=== PATIENT | female | born 1935 | race Hispanic/Latino ===

== ENCOUNTER 2017-02-02 19:36 | Emergency (ER) | payer MEDICARE, OTHER ==
--- NOTE | 2017-02-02 22:26 | RAD ---
RIGHT ANKLE THREE VIEWS: 02/02/17 HISTORY: Ankle pain and swelling. The bones appear demineralized. Vascular calcifications are noted. Calcaneal spurs are present. Mini mal arthritis changes of the ankle joint are noted. There is also arthritic changes of the tarsal willi ne region. I do not see any signs of any fracture. There appears to be a small osteochondral lesion of the medial side of the talar dome. IMPRESSION: No evidence of acute injury. POS: [facility]
== END 2017-02-02 21:26 | disposition home or self-care (01) ==
LOC: ERS 19:36
DX: M25.571 Pain in right ankle and joints of right foot (principal); E11.9 Type 2 diabetes mellitus without complications; E78.5 Hyperlipidemia, unspecified

== ENCOUNTER 2017-06-06 07:54 | Emergency (ER) | payer MEDICARE, OTHER ==
--- NOTE | 2017-06-06 08:41 | CT ---
BRAIN CT WITHOUT IV CONTRAST: History: 82-year-old female with history of slip and fall with back pain and head pain. Comparison: 09-19-15 FINDINGS: There is some age related atrophy and chronic white matter ischemic change. No focal mass or midline shift. No intra or extraaxial hemorrhage. IMPRESSION: Stable atrophy and chronic white matter ischemic change. No mass or bleed. Unchanged from prior exam, 09-19-15. POS: [facility]
--- NOTE | 2017-06-06 08:57 | CT ---
CERVICAL SPINE CT WITHOUT IV CONTRAST: HISTORY: An 82-year-old female with a history of slip and fall with back pain and head pain and associated tra colby. FINDINGS: There are some minimal disk desiccation changes and degenerative changes of the cervical spine. Ther e is a somewhat mosaic pattern to the visualized upper lungs. No evidence for acute fracture r facet dislocation. IMPRESSION: Cervical spine spondylosis without evidence for a fracture or facet dislocation. A nonspecific mosai c appearance to the visualized lungs. POS: [facility]
--- NOTE | 2017-06-06 09:31 | RAD ---
AP PELVIS: History: Trauma. Patient slipped and fell. Back pain. Right hip pain. FINDINGS/IMPRESSION: Degenerative changes are present in the hip joints and the lower lumbar spine. No acute fracture or d islocation is identified. There is a radiopaque foreign body in the pelvis which may represent a need le. Clinical correlation is recommended. POS: [facility]
--- NOTE | 2017-06-06 09:33 | RAD ---
FRONTAL VIEW CHEST TWO VIEWS RIGHT RIBS: Indication: Post-traumatic pain. FINDINGS: There is enlargement of the cardiac silhouette and pulmonary vascular congestion with interstitial pr ominence of each lung. No obvious effusion or discrete pneumothorax. No free air beneath the hemidiap hragms. There are scattered osseous degenerative changes. There is no displaced right rib fracture vi sualized. IMPRESSION: 1. Findings which indicate CHF. Correlate clinically. 2. No displaced rib fracture is seen. POS: [facility]
--- NOTE | 2017-06-06 09:57 | RAD ---
RIGHT HIP 2 VIEWS: INDICATION: Fall with injury. FINDINGS: There is moderate osteoarthritis. There is a radiopaque dense overlying the pelvis, not further loca lized. IMPRESSION: 1. No acute osseous of the right hip. 2. Linear radiopaque density overlying the pelvis not further localized. Correlate clinically. POS: [facility]
== END 2017-06-06 10:12 | disposition home or self-care (01) ==
LOC: ERS 07:54
DX: M25.551 Pain in right hip (principal); E11.9 Type 2 diabetes mellitus without complications; E78.5 Hyperlipidemia, unspecified; Z79.4 Long term (current) use of insulin; W19.XXXA Unspecified fall, initial encounter
CPT/HCPCS: 70450; 72125; 72170

== ENCOUNTER 2017-06-09 18:32 | Observation (INO) | payer MEDICARE, OTHER ==
[~2017-06-09 18:32] MED LIST: ISOVUE-370 76%-LOCM 1 ML ONE
[2017-06-09 19:36] LABS: #Eosinphils 0.4 thou/uL (0.0-0.7); #Monocytes 0.7 thou/uL (0.11-0.59); #Neutrophils 6.6 thou/uL (1.40-6.50); %Basophils 0.4 % (0.0-1.0); %Eosinophils 4.2 % (0.0-10.0); %Lymphocytes 20.8 % (21.0-51.0); %Monocytes 6.6 % (0.0-10.0); %Neutrophils 67.9 % (42.0-75.0); Hemoglobin 11.8 g/dL (12.0-16.0); Mean Corpuscular HGB CONC 34.1 g/dL (32.0-36.0); Mean Corpuscular Hemoglobin 32.7 pg (27.0-31.0); Mean Corpuscular Volume 95.9 fl (81.0-99.0); Mean Platelet Volume 9.4 fL (7.4-10.4); Platelet Count 179 thou/uL (130-400); RBC Distribution Width 12.6 % (11.5-14.5); Red Blood Cell (RBC) Count 3.59 mill/uL (4.20-5.40); White Blood Cell (WBC) Count 9.8 thou/uL (4.8-10.8)
[2017-06-09 19:43] LABS: PTT 29.3 SEC (22.9-36.1); Prothrombin Time 13.8 SEC (12.0-14.7)
[2017-06-09 19:45] LABS: D-Dimer Test 2.19 *mcg/mL (0.27-0.43)
[2017-06-09 19:51] LABS: ALT (SGPT) 14 U/L (8-55); AST (SGOT) 9 U/L (5-34); Alkaline Phosphatase 57 U/L (40-150); Anion Gap 10 mmol/L (10-20); BUN (Urea Nitrogen) 24 mg/dL (9.8-20.1); Bilirubin, Total 0.9 mg/dL (0.2-1.2); Calc. Creatinine Clearance 0 mL/min (70-130); Calcium 9.7 mg/dL (7.8-10.44); Carbon Dioxide 27 mmol/L (23-31); Chloride 106 mmol/L (98-107); Estimated GFR-MDRD 62; Globulin 3.5 g/dL (2.4-3.5); Glucose 162 mg/dL (83-110); Lipase 35 U/L (8-78); Magnesium 1.6 mg/dL (1.6-2.6); Potassium 4.5 mmol/L (3.5-5.1); Protein, Total 7.5 g/dL (6.0-8.3); Sodium 138 mmol/L (136-145)
[2017-06-09] MEDS ORDERED: Ketorolac Tromethamine 30 MG/ML VIAL ONE (19:55)
[2017-06-09] MEDS ORDERED: Fentanyl 100 MCG/2 ML VIAL ONE ×2 (19:55→23:50)
[2017-06-09 19:56] LABS: CKMB 1.1 ng/mL (0-6.6); Troponin I Less than 0.010 ng/mL (< 0.028)
--- NOTE | 2017-06-09 20:08 | RAD ---
PORTABLE CHEST: 06/09/17 HISTORY: Chest pain. COMPARISON: 08/03/15. Heart is mildly enlarged. There is mild vascular congestion. Some interstitial prominence may represe nt mild edema. No confluent infiltrate. No significant effusion. IMPRESSION: Heart size is mildly prominent and there is evidence of mild vascular engorgement. POS: [facility]
--- NOTE | 2017-06-09 22:03 | CT ---
CT PULMONARY ANGIO OF CHEST WITH CONTRAST: 06/09/17 Multiple axial tomograms obtained through the chest with IV enhancement. Multiplanar reconstruction a nd 3D postprocessing performed. HISTORY: Shortness of breath. Elevated D-dimer. Chest pain. Pulmonary arteries are adequately opacified. No evidence of pulmonary embolus identified. No evidence of thoracic aortic dissection. Mediastinum unremarkable. There is cardiomegaly with vascular congestion. The lungs show hazy ground glass opacity throughout b oth lung penn most likely representing mild edema. Streaky atelectatic changes in both lung bases. No evidence of effusion. IMPRESSION: 1. No evidence of pulmonary embolus. 2. Cardiomegaly with vascular congestion. Hazy ground glass alveolar opacity throughout both gracia gs suggests edema. POS: [facility]
[2017-06-09] MEDS ORDERED: Furosemide 40 MG/4 ML VIAL ONE (23:47)
[2017-06-10] MEDS ORDERED: Dextrose 5% in Water 1,000 ML IV PRN ×2 (00:08→02:06)
[2017-06-10] MEDS ORDERED: Ondansetron ODT 4 MG TAB PO PRN (00:08)
[2017-06-10] MEDS ORDERED: Milk Of Magnesia 30 ML UDCUP PO PRN (00:08)
[2017-06-10] MEDS ORDERED: Dextrose 50% Abboject 50 ML SYRINGE SLOW IVP PRN ×2 (00:08→02:06)
[2017-06-10] MEDS ORDERED: Ondansetron PF 4 MG/2 ML Vial IVP PRN (00:08)
[2017-06-10] MEDS ORDERED: Acetaminophen 325 MG TAB PO PRN (00:08)
[2017-06-10] MEDS ORDERED: HumaLOG 300 UNITS/3 ML VIAL SC PRN (00:08)
[2017-06-10] MEDS ORDERED: Albuterol Sulfate 2.5 mg/3 ml Neb NEB PRN (00:11)
[2017-06-10 00:15] LABS: Troponin I Less than 0.010 ng/mL (< 0.028)
[2017-06-10 01:59] VITALS: BMI 31.8
[2017-06-10] MEDS ORDERED: Morphine 5 MG/ML SYRINGE SLOW IVP PRN (02:07)
[2017-06-10] MEDS ORDERED: Furosemide 20 MG/2 ML VIAL SLOW IVP SCH (02:15)
[2017-06-10 02:57] LABS: #Basophils 0.1 thou/uL (0.0-0.2); #Eosinphils 0.4 thou/uL (0.0-0.7); #Lymphocytes 2.3 thou/uL (1.20-3.40); #Monocytes 0.9 thou/uL (0.11-0.59); #Neutrophils 5.9 thou/uL (1.40-6.50); %Basophils 0.6 % (0.0-1.0); %Eosinophils 4.2 % (0.0-10.0); %Lymphocytes 24.1 % (21.0-51.0); %Monocytes 9.5 % (0.0-10.0); %Neutrophils 61.6 % (42.0-75.0); Hemoglobin 11.5 g/dL (12.0-16.0); Mean Corpuscular Hemoglobin 32.5 pg (27.0-31.0); Mean Corpuscular Volume 95.8 fl (81.0-99.0); Mean Platelet Volume 9.3 fL (7.4-10.4); Platelet Count 175 thou/uL (130-400); RBC Distribution Width 12.4 % (11.5-14.5); Red Blood Cell (RBC) Count 3.52 mill/uL (4.20-5.40); White Blood Cell (WBC) Count 9.6 thou/uL (4.8-10.8)
[2017-06-10 03:24] LABS: Troponin I Less than 0.010 ng/mL (< 0.028)
[2017-06-10 03:27] LABS: Anion Gap 9 mmol/L (10-20); BUN (Urea Nitrogen) 23 mg/dL (9.8-20.1); Calc. Creatinine Clearance 69 mL/min (70-130); Calcium 9.8 mg/dL (7.8-10.44); Carbon Dioxide 29 mmol/L (23-31); Chloride 105 mmol/L (98-107); Estimated GFR-MDRD 68; Glucose 131 mg/dL (83-110); Sodium 139 mmol/L (136-145)
[2017-06-10] MEDS: HYDROcodone/Acetaminophen 5/325 mg Tablet PO PRN ×2 (06:51→12:43)
[2017-06-10] MEDS ORDERED: Alogliptin 25 MG TAB PO SCH (08:00)
[2017-06-10] MEDS ORDERED: metFORMIN XR 500 MG TAB PO SCH (08:00)
[2017-06-10] MEDS ORDERED: Docusate 100 MG CAP PO SCH (09:00)
[2017-06-10] MEDS ORDERED: Ferrous Sulfate 325 MG TAB PO SCH (09:00)
[2017-06-10] MEDS ORDERED: Fish Oil 1,000 MG CAP PO SCH (09:00)
--- NOTE | 2017-06-10 09:11 | HP ---
DATE OF ADMISSION: 06/10/2017 PRIMARY CARE PHYSICIAN: Dr. Yesenia Beckett. CHIEF COMPLAINT: Fall and pain in the chest wall after the fall. HISTORY OF PRESENT ILLNESS: Ms. Sneed is a pleasant 82-year-old female, who appears much younger th an her stated age with past medical history of diabetes as well as dyslipidemia, who presented to the emergency room with the above-mentioned complaint. History is mainly obtained by the patient hersel f and electronic medical records have been reviewed. The patient reports that, 3 days ago, she fell backwards. 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 The other lady was walking with a walker and the patient was walking behind her and sh e slipped and fell on the steps and hurt herself in the back and the chest. Since then, she has been having the pain under the ribs, which was not going away, so she presented to the ER. She denied be ing sick prior to this. She denies any recent illnesses and emphasizes that she has been in [employer] and is very active. Upon presentation to the emergency room, she was somewhat hypoxic with O2 sat of 89% on room air. Th is prompted further workup including a chest x-ray, which showed pulmonary vascular congestion. Her BNP was within normal limits. Her D-dimer was elevated at 2.19, so she underwent a CT angio of the c hest as well. She did not have any pulmonary embolism, but it was once again consistent with ground- glass opacities suggestive of edema as well as cardiomegaly and vascular congestion. [facility] status for hypoxia. She is currently saturating 94-96% on 2 liters nasa l cannula. She denies any shortness of breath or dyspnea on exertion. She denies any orthopnea, PND, or lower e xtremity swelling. No recent travel history. No sick contacts. She denies any fever, chills, or ch est pain. PAST MEDICAL HISTORY: 1. Hypertension. 2. Dyslipidemia. PAST SURGICAL HISTORY: 1. Appendectomy. 2. section. PSYCHIATRIC HISTORY: No Anxiety or depression. SOCIAL HISTORY: No drug or alcohol abuse. She lives independently with a roommate. FAMILY HISTORY: Significant for dad with diabetes and mom with heart disease. ALLERGIES: OPIOIDS, MORPHINE ANALOGUES. MEDICATIONS: Lantus 50 units at bedtime, metformin 500 mg in the morning, and tramadol as needed. REVIEW OF SYSTEMS: The following complete review of systems was negative, unless otherwise mentioned in the HPI or below: Constitutional: Weight loss or gain, ability to conduct usual activities. Sk in: Rash, itching. Eyes: Double vision, pain. ENT/Mouth: Nose bleeding, neck stiffness, pain, te nderness. Cardiovascular: Palpitations, dyspnea on exertion, orthopnea. Respiratory: Shortness of breath, wheezing, cough, hemoptysis, fever, or night sweats. Gastrointestinal: Poor appetite, abdo cristela pain, heartburn, nausea, vomiting, constipation, or diarrhea. Genitourinary: Urgency, frequen cy, dysuria, nocturia. Musculoskeletal: Pain, swelling. Neurologic/Psychiatric: Anxiety, depressi on. Allergy/Immunologic: Skin rash, bleeding tendency. It is negative except for those mentioned i n the history and physical. LABORATORY EXAMINATION: CBC shows WBC is 9.6, hemoglobin 11.8, platelet count of 179. No left shift or bandemia. D-dimer 2.19. Serum chemistries upon presentation show BUN slightly elevated at 24 wi th a normal creatinine. Blood sugar 168, lactic acid 1.8. Cardiac enzymes, troponin negative x3. B [employer] DES[employer]ER normal at 81. Lipase 35. Chest x-ray, by my review, has no evidence to suggest any rib contusion or fractures. Mild pulmonary vascular congestion. CT angiogram, by my review, has no evidence of pulmonary edema, but does show pulmonary vascular congestion. PHYSICAL EXAMINATION: MOST RECENT VITAL SIGNS: Include temperature 98.3, pulse of 73, respirations 20, saturating 95% on 2 liters nasal cannula. Blood pressure 159/66, blood pressure at the time of presentation was 129/64 and O2 SAT was 89% on room air, temperature 98.6. GENERAL EXAMINATION: No acute distress. She is sitting up on the side of the bed without any acute distress, appears younger than her stated age. Awake, alert, oriented x3. HEENT EXAMINATION: Mucous membrane is slightly dry. Otherwise, no oropharyngeal exudate or erythema . Head is normocephalic, atraumatic. Pupils equal and reactive to light and accommodation. Extraoc ular muscles are intact. NECK: Supple without any lymphadenopathy or JVD. CHEST: Clear to auscultation without any wheezing, rales, or rhonchi. Rate and rhythm is regular wi thout any murmur, rubs, or gallop. She is slightly tender to palpation of the left rib cage. ABDOMEN: Soft, nontender, nondistended, positive bowel sounds. EXTREMITIES: Free of any cyanosis, clubbing, or edema. NEUROLOGICAL EXAMINATION: Nonfocal. SKIN: Free of any rashes or bruises and warm and dry to touch. PSYCHIATRIC: Normal affect. IMPRESSION AND PLAN: 1. Hypoxia, likely secondary to pulmonary edema. The etiology is not clear at this time. We will r ule out cardiac etiology and perform a transthoracic echocardiogram. The patient has received Lasix twice since then. She has received 40 mg in the emergency room and 20 mg this morning, and her urine output has been at least 1000 mL so far. She appears quite comfortable at this time, and we will tr y to wean her off of the oxygen. Depending upon the echocardiogram results, further management plan will be advised. Serial cardiac enzymes were done and are negative. Her BNP is within normal limits with the likelihood of cardiogenic pathology is less at this time. She does not appear to be having any evidence of viral or bacterial infection either. Pulmonary embolism has also been ruled out as a cause. Her blood pressure is also well controlled. Her TSH was checked in 07/2016 and was within normal limits. 2. Diabetes mellitus. We will restart her home medications and add insulin sliding scale for furthe r control with frequent Accu-Cheks. Continue sitagliptin. 3. Dyslipidemia. Continue atorvastatin. 4. Code status: FULL CODE, discussed with the patient. 5. Deep venous thrombosis and gastrointestinal prophylaxis, p.r.n. medication ordered. 6. Disposition: Ms. Sneed is currently being admitted under observation status for workup of hypox ia due to pulmonary edema. Further management will depend upon her clinical course.
[2017-06-10] MEDS: Heparin 5,000 UNITS/ML VIAL SC SCH ×2 (09:25→16:24)
[2017-06-10 10:08] LABS: Bilirubin Negative (Negative); Blood, Urine Negative (Negative); Clarity CLEAR (Clear); Glucose, Urine (Dipstick) Negative (Negative); Leukocyte Negative (Negative); Nitrite Negative (Negative); Protein, Urine (Dipstick) Negative (Neg-Trace); Specific Gravity, Urine 1.019 (1.002-1.036); Urobilinogen 0.2 mg/dL (0.2-1.0)
[2017-06-10 16:17] VITALS: BP 132/63; TEMP 98.5
--- NOTE | 2017-06-10 20:46 | DIS ---
DATE OF ADMISSION: 06/09/2017 DATE OF DISCHARGE: 06/10/2017 DISCHARGE DIAGNOSES: 1. Pulmonary edema from unclear etiology. Recent fall with chest contusion, likely secondary to tra colby. 2. History of diabetes mellitus. DISCHARGE MEDICATIONS: Remain the same as admission medications. Please see admission history and p hysical dictated by myself. PRIMARY CARE PHYSICIAN: Yesenia Beckett M.D. PROCEDURES IN THE HOSPITAL: Echocardiogram which shows EF preserved at 55%-60%, mildly enlarged righ t ventricle cavity and moderately dilated left atrium and no evidence of mitral regurgitation and meagan ral valve stenosis, aortic valve is normal. BRIEF HOSPITAL COURSE: Ms. Sneed was admitted by myself earlier this morning for complains of some hypoxia and shortness of breath and was found to be in pulmonary edema. This resolved with the use o f Lasix. She gave history of recent trauma when she fell and hit her chest. She underwent echocardi ogram and CT angiogram of the thorax. She did not have any pulmonary embolism. She did not have any congestive heart failure. Her symptoms have completely resolved with the use of small Lasix. She w ill follow with primary care physician in the outpatient setting if she needs to have a regular diure ses, but I think flash pulmonary edema is secondary to trauma and no cardiac or noncardiogenic causes are identified during this hospitalization. She remained hemodynamically stable throughout her hospitalization. She is eager to go home and will be discharged. Please see admission history and physical for further detail including the face-to-f kathleen interaction.
[2017-06-10] MEDS ORDERED: Insulin Detemir 100 UNITS/ML 50 UNITS in Pre-Filled Syringe 1 EACH SC SCH (21:00)
[2017-06-10] MEDS ORDERED: Non-Formulary Item 1 EACH (Insulin Glargine,Hum.Rec.Anlog 50 UNIT) SQ SCH (21:00)
[2017-06-10] MEDS ORDERED: Atorvastatin Calcium 10 MG TAB PO SCH (21:00)
--- NOTE | 2017-06-16 15:14 | EKG ---
Test Reason : Blood Pressure : / mmHG Vent. Rate : 079 BPM Atrial Rate : 079 BPM P-R Int : 144 ms QRS Dur : 082 ms QT Int : 394 ms P-R-T Axes : 039 -01 012 degrees QTc Int : 451 ms Normal sinus rhythm Normal ECG Confirmed by MAC XAVIER ([id number]), news copy editor KIM MCCARTNEY ([id number]) on 06/16/2017 3:14:11 PM Referred By: Confirmed By:MAC XAVIER
== END 2017-06-10 17:09 | disposition home or self-care (01) ==
LOC: ERS 18:32 → 2SW 23:10
PROVIDERS: ADMIT Internal Medicine; ATTEND Internal Medicine
DX: J81.1 Chronic pulmonary edema (principal); S20.219A Contusion of unspecified front wall of thorax, initial encounter; E11.9 Type 2 diabetes mellitus without complications; I10 Essential (primary) hypertension; E78.5 Hyperlipidemia, unspecified; E78.00 Pure hypercholesterolemia, unspecified; I51.7 Cardiomegaly; Z79.4 Long term (current) use of insulin; Z88.5 Allergy status to narcotic agent; Z90.49 Acquired absence of other specified parts of digestive tract; W10.9XXA Fall (on) (from) unspecified stairs and steps, initial encounter
CPT/HCPCS: 71045; 71275; 80048; 80053; 81003; 82553; 82962; 83605; 83690; 83735; 83880; 84484 ×3; 85025 ×2; 85379; 85610; 85730; 93005; 93306; 94640 ×2; 96361; 96374; 96375; 96376 ×2; 99285; G0378; 36415; 36416; J1644; J1815; J1885; J1940; J3010; J7620

== ENCOUNTER 2017-06-19 16:45 | Outpatient (CLI) | payer MEDICARE, OTHER | END 2017-06-19 16:46 | disposition home or self-care (01) | LOC: BICULT 16:45 | PROVIDERS: ATTEND Internal Medicine | DX: R60.0 Localized edema (principal) | CPT/HCPCS: 93970 ==

== ENCOUNTER 2018-07-31 13:58 | Outpatient (CLI) | payer MEDICARE, OTHER ==
--- NOTE | 2018-07-31 14:50 | ULT ---
ABDOMINAL ULTRASOUND: HISTORY: Abdominal pain. Nausea, vomiting, and diarrhea. FINDINGS: The liver demonstrates increased echogenicity, consistent with fatty infiltration. No focal mass or intrahepatic ductal dilatation is seen. The spleen is normal, measuring 9.6 cm in length. The gallb ladder is not well distended; however, no shadowing calculi, gallbladder wall thickening, or perichol ecystic fluid is seen. The common duct measures 4 mm in diameter. No hydronephrosis is noted on either side. There is a 9 mm, nonshadowing, echogenic focus in the rig ht renal cortex, which has a linear appearance. The visualized portions of the pancreas, aorta, and IVC are unremarkable. No free fluid is seen. IMPRESSION: 1. Fatty liver. 2. No evidence of cholelithiasis. 3. Nonobstructing right renal calculus verus artifact. POS: [facility]
== END 2018-07-31 13:59 | disposition home or self-care (01) ==
LOC: BICULT 13:58
PROVIDERS: ATTEND Internal Medicine
DX: R10.9 Unspecified abdominal pain (principal); K76.0 Fatty (change of) liver, not elsewhere classified
CPT/HCPCS: 76700

== ENCOUNTER 2018-09-10 08:09 | Emergency (ER) | payer MEDICARE, OTHER ==
--- NOTE | 2018-09-10 10:19 | RAD ---
LEFT FOOT THREE VIEWS: Indication: Left foot pain. Comparison: None. FINDINGS: There is scattered osteoarthrosis of the left foot. Enthesopathic change is seen off the calcaneus. T here is diffuse osteopenia. No acute fracture is evident. There are vascular calcifications within th e soft tissues. IMPRESSION: No acute osseous abnormality. POS: [facility]
== END 2018-09-10 09:30 | disposition home or self-care (01) ==
LOC: ERS 08:09
DX: M79.672 Pain in left foot (principal); E11.9 Type 2 diabetes mellitus without complications; E78.5 Hyperlipidemia, unspecified; Z79.899 Other long term (current) drug therapy; Z79.84 Long term (current) use of oral hypoglycemic drugs

== ENCOUNTER 2018-10-03 11:25 | Outpatient (CLI) | payer MEDICARE, OTHER ==
--- NOTE | 2018-10-03 12:40 | RAD ---
RIGHT HIP TWO VIEWS: 10/03/18 HISTORY: Right hip pain. FINDINGS/IMPRESSION: Degenerative changes are present. No fracture or dislocation or bony destruction identified. POS: [facility]
--- NOTE | 2018-10-03 13:22 | RAD ---
LUMBAR SPINE TWO VIEWS: 10/03/18 HISTORY: Low back pain. FINDINGS/IMPRESSION: There are degenerative changes with mild levoscoliosis of the lumbar spine. There is mild compression of T12 and T11 vertebral bodies. No subluxation is seen. There are vascular calcifications. POS: [facility]
== END 2018-10-03 11:26 | disposition home or self-care (01) ==
LOC: BICRAD 11:25
PROVIDERS: ATTEND Internal Medicine
DX: M54.5 Low back pain (principal); M25.551 Pain in right hip; M16.11 Unilateral primary osteoarthritis, right hip
CPT/HCPCS: 72100

== ENCOUNTER 2019-02-28 08:13 | Outpatient (CLI) | payer MEDICARE, OTHER ==
--- NOTE | 2019-02-28 10:04 | BD ---
DEXA BONE DENSITY STUDY: HISTORY: Postmenopausal. 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 POS: [facility]
== END 2019-02-28 08:14 | disposition home or self-care (01) ==
LOC: BICMAMMO 08:13
PROVIDERS: ATTEND Internal Medicine
DX: Z13.820 Encounter for screening for osteoporosis (principal); M81.0 Age-related osteoporosis without current pathological fracture; M85.852 Other specified disorders of bone density and structure, left thigh
CPT/HCPCS: 77080

== ENCOUNTER 2019-04-03 11:38 | Emergency (ER) | payer MEDICARE, OTHER ==
[2019-04-03 12:23] LABS: #Basophils 0.1 thou/uL (0.0-0.2); #Eosinphils 0.4 thou/uL (0.0-0.7); #Lymphocytes 2.4 thou/uL (1.20-3.40); #Monocytes 0.7 thou/uL (0.11-0.59); #Neutrophils 5.2 thou/uL (1.40-6.50); %Basophils 0.7 % (0.0-1.0); %Eosinophils 4.9 % (0.0-10.0); %Lymphocytes 27.2 % (21.0-51.0); %Monocytes 7.5 % (0.0-10.0); %Neutrophils 59.6 % (42.0-75.0); Hemoglobin 12.2 g/dL (12.0-16.0); Mean Corpuscular HGB CONC 33.1 g/dL (32.0-36.0); Mean Corpuscular Hemoglobin 30.7 pg (27.0-31.0); Mean Corpuscular Volume 92.7 fL (78.0-98.0); Mean Platelet Volume 9.6 fL (7.4-10.4); Platelet Count 194 thou/uL (130-400); RBC Distribution Width 12.5 % (11.5-14.5); Red Blood Cell (RBC) Count 3.96 mill/uL (4.20-5.40); White Blood Cell (WBC) Count 8.7 thou/uL (4.8-10.8)
--- NOTE | 2019-04-03 12:25 | RAD ---
2 VIEWS CHEST: Date: 04/03/19 PROVIDED CLINICAL HISTORY: Dyspnea. FINDINGS: Comparison with 06/09/17. Cardiac and mediastinal silhouette is within normal limits. Vascular calcification is noted. Stable p rominence of pulmonary interstitium. No focal consolidation, pleural fluid, or pneumothorax apparent. The bony thorax appears grossly intact. IMPRESSION: No evidence for an acute cardiopulmonary process. POS: [facility]
[2019-04-03 12:46] LABS: ALT (SGPT) 11 U/L (8-55); AST (SGOT) 8 U/L (5-34); Albumin 3.9 g/dL (3.4-4.8); Alkaline Phosphatase 74 U/L (40-110); Anion Gap 13 mmol/L (10-20); BUN (Urea Nitrogen) 18 mg/dL (9.8-20.1); Bilirubin, Total 0.9 mg/dL (0.2-1.2); CK (CPK) 60 U/L (29-168); Calc. Creatinine Clearance 0 mL/min (70-130); Calcium 9.5 mg/dL (7.8-10.44); Carbon Dioxide 25 mmol/L (23-31); Chloride 104 mmol/L (98-107); Estimated GFR-MDRD 64; Globulin 3.2 g/dL (2.4-3.5); Glucose 164 mg/dL (83-110); Potassium 4.9 mmol/L (3.5-5.1); Protein, Total 7.1 g/dL (6.0-8.3); Sodium 137 mmol/L (136-145)
== END 2019-04-03 14:06 | disposition home or self-care (01) ==
LOC: ERS 11:38
DX: R06.00 Dyspnea, unspecified (principal); E11.9 Type 2 diabetes mellitus without complications; E78.5 Hyperlipidemia, unspecified; E78.00 Pure hypercholesterolemia, unspecified; Z79.899 Other long term (current) drug therapy
CPT/HCPCS: 36415; 71046; 80053; 82550; 83880; 84484; 85025; 93005; 94760

== ENCOUNTER 2019-06-27 07:01 | Outpatient (CLI) | payer MEDICARE, OTHER ==
[2019-06-27 15:55] LABS: #Eosinphils 0.3 thou/uL (0.0-0.7); #Lymphocytes 1.9 thou/uL (1.20-3.40); #Monocytes 0.4 thou/uL (0.11-0.59); #Neutrophils 4.6 thou/uL (1.40-6.50); %Basophils 0.6 % (0.0-1.0); %Eosinophils 4.2 % (0.0-10.0); %Lymphocytes 26.2 % (21.0-51.0); Hemoglobin 11.6 g/dL (12.0-16.0); Mean Corpuscular HGB CONC 34.2 g/dL (32.0-36.0); Mean Corpuscular Hemoglobin 31.2 pg (27.0-31.0); Mean Corpuscular Volume 91.1 fL (78.0-98.0); Mean Platelet Volume 10.8 fL (7.4-10.4); Platelet Count 156 thou/uL (130-400); RBC Distribution Width 13.5 % (11.5-14.5); Red Blood Cell (RBC) Count 3.73 mill/uL (4.20-5.40); White Blood Cell (WBC) Count 7.3 thou/uL (4.8-10.8)
== END 2019-06-27 07:02 | disposition home or self-care (01) ==
LOC: LABBT 07:01
PROVIDERS: ATTEND Orthopaedic Surgery Hand Surgery
DX: Z01.812 Encounter for preprocedural laboratory examination (principal); G56.02 Carpal tunnel syndrome, left upper limb
CPT/HCPCS: 85025; 93005; 93010

== ENCOUNTER → 2019-07-01 | Day surgery (SDC) | payer MEDICARE, OTHER ==
[2019-06-27 14:56] VITALS: BMI 30.1
[~2019-07-01] MED LIST changes: +Bacitracin Zinc Ointment 30 gm TUBE ONE; +Betamet Acet/Betamet Na Ph 30 MG/5 ML VIAL ONE; +Bupivacaine PF 0.5% 30 ML VIAL ONE; +Dexamethasone 20 MG/5 ML VIAL ONE; +Fentanyl 100 MCG/2 ML VIAL ONE; -ISOVUE-370 76%-LOCM 1 ML ONE; +Lidocaine 1% PF 5 ML VIAL ONE; +Ondansetron PF 4 MG/2 ML Vial ONE; +PHENYLEPHRINE-NS 100 MCG/ML 10 ML SYRINGE ONE; +PROPOFOL 200 MG/20 ML VIAL ONE
--- NOTE | 2019-07-02 09:25 | OP ---
DATE OF PROCEDURE: 07/01/2019 PREOPERATIVE DIAGNOSIS: Left carpal tunnel syndrome. POSTOPERATIVE DIAGNOSIS: Left carpal tunnel syndrome. FINDINGS: 1. Left carpal tunnel syndrome with recurrent tight transverse carpal ligament with scar reforming after previous carpal tunnel release over 6/5 years ago. 2. Flexor digitorum profundus and superficialis radical tenosynovitis, mid thick tenosynovitis. 3. primary motor branch, which was type 1. 4. Flattened median nerve with 2 cm area of stippling. PROCEDURES PERFORMED: 1. Left carpal tunnel release. 2. Left flexor digitorum profundus radical flexor tenosynovectomy. 3. Left flexor digitorum superficialis radical extensor tenosynovectomy. 4. Celestone application. TOURNIQUET TIME: 18 minutes. ESTIMATED BLOOD LOSS: 10 mL. DESCRIPTION OF PROCEDURE: After successful general endotracheal anesthesia, the limb was prepped and draped. We then gave her a 10 mL of 0.5% Marcaine injection at the level of her previous incision and for area of 2 cm proximal and with more likely need to take this incision proximal to the volar wrist flexion crease because this was a second time or recurrent procedure. We then used the initial incision, and saw that there was very tight transverse carpal ligament, very proximal to this, we could not visualize the primary sensory takeoff area, so we extended the incision 2 cm proximal to the volar wrist flexion crease in a zigzag pattern. We then began to release the nerve, but it was even tight proximal volar wrist flexion crease after identifying the primary sensory branch and sparing it. Then, we released the nerve from proximal to distal using a Boswell blade, tenotomy scissors, and direct visualization. We found the primary motor branch. A small amount of compression here, released the area around this, preserving it. We then saw that the nerve was flat and erythematous and some stipple over 2 cm area beginning just proximal to the volar wrist flexion crease with a very tight scar began. We now released the transcarpal ligament. We removed the 2 mm area of the ligament on either side of the median nerve to help prevent recurrence. We also saw she had adequate fat for closure. At this time, we lifted up the flexor tendons and it was very thick tenosynovium on both the flexor digitorum profundus and superficialis to all digits. At this point, she underwent a radical flexor tenosynovectomy first of flexor digitorum superficialis and then a radical flexor tenosynovectomy of the flexor digitorum profundus all tendons. We then placed a 5 mL Celestone in the wound because of the tendinitis, we used slightly more than normal. We released the tourniquet. We obtained hemostasis. We then closed the incision with interrupted 4-0 nylon in a mattress pattern. Bulky dressing applied, she received additional 10 mL of 0.5% Marcaine along the entire incision. She left the operating room in a soft dressing. No evidence of anesthetic or operative complication with a pink digit and 1 second refill. Job ID: [id number]
== END ==
LOC: SDC 07:20
PROVIDERS: ATTEND Orthopaedic Surgery Hand Surgery
PROC: 01N50ZZ Release Median Nerve, Open Approach (ICD-10-PCS; principal; 2019-07-01)
PROC: 0RBP0ZZ Excision of Left Wrist Joint, Open Approach (ICD-10-PCS; 2019-07-01)
DX: G56.02 Carpal tunnel syndrome, left upper limb (principal); M65.88 Other synovitis and tenosynovitis, other site; E11.9 Type 2 diabetes mellitus without complications; I10 Essential (primary) hypertension; E78.5 Hyperlipidemia, unspecified; E55.9 Vitamin D deficiency, unspecified; Z79.4 Long term (current) use of insulin; Z79.82 Long term (current) use of aspirin; Z79.899 Other long term (current) drug therapy; Z88.8 Allergy status to other drugs, medicaments and biological substances; Z98.890 Other specified postprocedural states
CPT/HCPCS: 36416; 88305; J0690; J0702; J1100; J2001; J2405; J2704; J3010; J3490; S0020

== ENCOUNTER 2020-01-30 12:12 | Emergency (ER) | payer MEDICARE, OTHER ==
--- NOTE | 2020-01-30 13:17 | CT ---
CT BRAIN NONCONTRAST: DATE: 01/30/2020 HISTORY: 84-year-old female with headache FINDINGS: There is no evidence of acute intra-axial or extra-axial hemorrhage. There is no midline shift or any other mass effect. There is no extra-axial fluid collection. There is no evidence of obstructive hydrocephalus. Calvarium is intact. There is diffuse brain parenchymal volume loss. IMPRESSION: 1) No acute intracranial findings. 2) involutional changes.
[2020-01-30] MEDS ORDERED: Metoclopramide HCl 10 MG/2 ML VIAL ONE (14:26)
[2020-01-30] MEDS ORDERED: methylPREDNISolone Sod Succ/PF 125 MG/2 ML VIAL ONE (14:26)
[2020-01-30] MEDS ORDERED: Ketorolac Tromethamine 30 MG/ML VIAL ONE (14:26)
[2020-01-30 14:37] LABS: #Basophils 0.1 thou/uL (0.0-0.2); #Eosinphils 0.2 thou/uL (0.0-0.7); #Lymphocytes 2.5 thou/uL (1.20-3.40); #Monocytes 0.6 thou/uL (0.11-0.59); %Basophils 0.6 % (0.0-1.0); %Eosinophils 2.1 % (0.0-10.0); %Monocytes 5.7 % (0.0-10.0); %Neutrophils 67.7 % (42.0-75.0); Hemoglobin 12.3 g/dL (12.0-16.0); Mean Corpuscular HGB CONC 33.5 g/dL (32.0-36.0); Mean Corpuscular Hemoglobin 31.6 pg (27.0-31.0); Mean Corpuscular Volume 94.2 fL (78.0-98.0); Mean Platelet Volume 10.3 fL (7.4-10.4); Platelet Count 187 thou/uL (130-400); Red Blood Cell (RBC) Count 3.91 mill/uL (4.20-5.40); White Blood Cell (WBC) Count 10.3 thou/uL (4.8-10.8)
[2020-01-30 14:57] LABS: ALT (SGPT) 16 U/L (8-55); AST (SGOT) 10 U/L (5-34); Alkaline Phosphatase 56 U/L (40-110); Anion Gap 11 mmol/L (10-20); BUN (Urea Nitrogen) 24 mg/dL (9.8-20.1); Bilirubin, Total 0.9 mg/dL (0.2-1.2); Calc. Creatinine Clearance 0 mL/min (70-130); Calcium 9.8 mg/dL (7.8-10.44); Carbon Dioxide 26 mmol/L (23-31); Chloride 105 mmol/L (98-107); Estimated GFR-MDRD 57; Globulin 3.4 g/dL (2.4-3.5); Glucose 159 mg/dL (83-110); Protein, Total 7.4 g/dL (6.0-8.3); Sodium 137 mmol/L (136-145)
[2020-01-30 14:58] LABS: CRP (Inflammatory) Less than 0.50 mg/dL (= or < 0.5); Lipase 56 U/L (8-78)
== END 2020-01-30 17:12 | disposition home or self-care (01) ==
LOC: ERS 12:12
DX: R51.9 Headache, unspecified (principal); E11.9 Type 2 diabetes mellitus without complications; E78.5 Hyperlipidemia, unspecified; E78.00 Pure hypercholesterolemia, unspecified; Z79.4 Long term (current) use of insulin; Z79.82 Long term (current) use of aspirin; Z79.899 Other long term (current) drug therapy
CPT/HCPCS: 36415; 70450; 80053; 83690; 85025; 85652; 86140; 96365; 96375; J1885; J2765; J2930

== ENCOUNTER 2020-04-02 17:54 | Emergency (ER) | payer MEDICARE, OTHER, MEDICAID ==
--- NOTE | 2020-04-02 19:00 | RAD ---
RIGHT FOREARM TWO VIEW: 04/02/20 HISTORY: Fall. COMPARISON: None. FINDINGS: chronic lateral epicondylitis. There is a fracture through the radial styloid process likely. The pro ximal forearm is intact. IMPRESSION: Likely intra-articular radial styloid process fracture for which dedicated wrist radiographs would be recommended. POS: [facility]
--- NOTE | 2020-04-02 19:05 | RAD ---
RIGHT HAND THREE VIEWS: 04/02/20 HISTORY: Fall. COMPARISON: None. FINDINGS: The hand itself is intact. High concern for intra-articular distal radius fracture through the radial styloid process. Moderate vascular calcifications. Concern for an extra-articular fracture through the distal phalanx of the thumb. Severe thumb interphalangeal joint space degeneration. IMPRESSION: 1. Findings concerning for nondisplaced fracture of the thumb mid diaphysis extending through th e tuft. Correlation for focal tenderness is recommended. 2. High concern for intra-articular radial styloid process fracture for which wrist radiograph i s recommended. 3. Advanced osteoarthritis. POS: [facility]
[2020-04-02] MEDS ORDERED: Acetaminophen 500 MG TAB ONE (19:07)
--- NOTE | 2020-04-02 20:00 | CT ---
CT CHEST WITHOUT CONTRAST CLINICAL INDICATION: Left-sided chest pain after a fall. COMPARISON: None FINDINGS: Aorta: Limited evaluation due to lack of intravenous contrast. The thoracic aorta is normal in calibe r. Vascular calcifications are seen in the thoracic aorta as well as involving the coronary arteries. Lungs: There are dependent mild patchy densities at each lung base with mild groundglass density in t he posterior aspect left upper lobe probably attributable to atelectasis. No pulmonary nodule, mass, or pleural effusion is identified. The large airways appear patent. Mediastinum: Prominent calcifications of the mitral valve annulus are seen. No enlarged lymph nodes a re seen by CT size criteria. Thyroid gland: Incompletely imaged. Osseous structures: Multilevel degenerative changes with several minimal wedge shaped compression typ e deformities of thoracic vertebral body of indeterminate age. Chest wall: No abnormality visualized. Upper abdomen: Grossly normal nonenhanced CT appearance. IMPRESSION: 1. No acute findings are seen on this nonenhanced CT thorax. 2. Multiple minimal compression fractures of thoracic vertebral bodies of indeterminate age. 3. Prominent vascular calcifications.
[2020-04-02] MEDS ORDERED: Ketorolac Tromethamine 30 MG/ML VIAL ONE (20:31)
== END 2020-04-02 20:38 | disposition home or self-care (01) ==
LOC: ERS 17:54
DX: S62.524A Nondisplaced fracture of distal phalanx of right thumb, initial encounter for closed fracture (principal); S52.511A Displaced fracture of right radial styloid process, initial encounter for closed fracture; E11.9 Type 2 diabetes mellitus without complications; E78.5 Hyperlipidemia, unspecified; E78.00 Pure hypercholesterolemia, unspecified; W10.1XXA Fall (on)(from) sidewalk curb, initial encounter; Z79.82 Long term (current) use of aspirin; Z79.899 Other long term (current) drug therapy
CPT/HCPCS: 29125; 71250; 94760; 96372; J1885

== ENCOUNTER 2020-04-09 06:06 | Emergency (ER) | payer MEDICARE, OTHER, MEDICAID ==
[2020-04-09] MEDS ORDERED: Ketorolac Tromethamine 30 MG/ML VIAL ONE (06:48)
--- NOTE | 2020-04-09 08:31 | RAD ---
LEFT WRIST 3 VIEWS: Date: 04/09/2020 INDICATION: History of fall with left wrist pain. COMPARISON: None. FINDINGS: There is diffuse osteopenia. There are Monckeberg's calcifications within the soft tissues of the lef t wrist. There is mild first CMC osteoarthrosis. DRUJ appears within normal limits. Carpal alignment is within normal limits. No displaced fracture is evident. IMPRESSION: No acute fracture or subluxation. POS: [facility]
== END 2020-04-09 07:20 | disposition home or self-care (01) ==
LOC: ERS 06:06
DX: S63.502A Unspecified sprain of left wrist, initial encounter (principal); E11.9 Type 2 diabetes mellitus without complications; E78.5 Hyperlipidemia, unspecified; E78.00 Pure hypercholesterolemia, unspecified; Z79.899 Other long term (current) drug therapy; Z79.82 Long term (current) use of aspirin; W19.XXXA Unspecified fall, initial encounter
CPT/HCPCS: 96372; J1885

== ENCOUNTER 2020-04-26 11:06 | Emergency (ER) | payer MEDICARE, OTHER ==
--- NOTE | 2020-04-26 11:29 | CT ---
CT head noncontrast HISTORY: Altered mental status. COMPARISON: 01/30/2020. FINDINGS: There is no evidence of acute intracranial hemorrhage or infarct. Diffuse cortical atrophy and chronic ischemic small vessel disease are similar in appearance to the prior study. Minimal physiologic calcification at the basal ganglia. There is no mass effect or shift of midline structures. Small mucous retention cyst within the spheno id sinus. IMPRESSION : No acute abnormalities are demonstrated.
== END 2020-04-26 13:01 | disposition home or self-care (01) ==
LOC: ERS 11:06
DX: G51.0 Bell's palsy (principal); E11.9 Type 2 diabetes mellitus without complications; E78.5 Hyperlipidemia, unspecified; E78.00 Pure hypercholesterolemia, unspecified
CPT/HCPCS: 36416; 70450

== ENCOUNTER 2020-06-29 12:14 | Outpatient (CLI) | payer MEDICARE, MEDICAID | END 2020-06-29 12:15 | disposition home or self-care (01) | LOC: BICRAD 12:14 | PROVIDERS: ATTEND Family Medicine | DX: M25.552 Pain in left hip (principal); M16.12 Unilateral primary osteoarthritis, left hip ==

== ENCOUNTER 2020-07-06 08:25 | Outpatient (CLI) | payer MEDICARE, MEDICAID | END 2020-07-06 08:26 | disposition home or self-care (01) | LOC: BICMAMMO 08:25 | PROVIDERS: ATTEND Family Medicine | DX: Z13.820 Encounter for screening for osteoporosis (principal); M81.0 Age-related osteoporosis without current pathological fracture; M85.852 Other specified disorders of bone density and structure, left thigh | CPT/HCPCS: 77080 ==

== ENCOUNTER 2020-10-08 14:37 | Observation (INO) | payer MEDICARE, MEDICAID ==
[2020-10-08 15:13] LABS: #Eosinphils 0.3 thou/uL (0.0-0.7); #Lymphocytes 2.3 thou/uL (1.20-3.40); #Monocytes 0.6 thou/uL (0.11-0.59); #Neutrophils 5.7 thou/uL (1.40-6.50); %Basophils 0.5 % (0.0-1.0); %Eosinophils 3.3 % (0.0-10.0); %Lymphocytes 26.1 % (21.0-51.0); %Monocytes 6.2 % (0.0-10.0); %Neutrophils 63.8 % (42.0-75.0); Mean Corpuscular HGB CONC 33.4 g/dL (32.0-36.0); Mean Corpuscular Hemoglobin 30.3 pg (27.0-31.0); Mean Corpuscular Volume 90.5 fL (78.0-98.0); Mean Platelet Volume 10.9 fL (7.4-10.4); Platelet Count 165 thou/uL (130-400); RBC Distribution Width 13.3 % (11.5-14.5); White Blood Cell (WBC) Count 8.9 thou/uL (4.8-10.8)
[2020-10-08 15:24] LABS: PTT 25.4 sec (22.9-36.1)
[2020-10-08 15:26] LABS: ALT (SGPT) 13 U/L (8-55); AST (SGOT) 8 U/L (5-34); Albumin 4.1 g/dL (3.4-4.8); Alkaline Phosphatase 69 U/L (40-110); Anion Gap 15 mmol/L (10-20); BUN (Urea Nitrogen) 19 mg/dL (9.8-20.1); Bilirubin, Total 0.8 mg/dL (0.2-1.2); Calc. Creatinine Clearance 0 mL/min (70-130); Calcium 10.3 mg/dL (7.8-10.44); Carbon Dioxide 22 mmol/L (23-31); Chloride 105 mmol/L (98-107); Globulin 3.6 g/dL (2.4-3.5); Glucose 140 mg/dL (83-110); Potassium 4.2 mmol/L (3.5-5.1); Protein, Total 7.7 g/dL (5.8-8.1); Sodium 138 mmol/L (136-145)
[2020-10-08] MEDS ORDERED: Aspirin Chewable 81 MG TAB ONE (16:10)
[2020-10-08] MEDS ORDERED: Acetaminophen 650 MG Suppository PR PRN (17:37)
[2020-10-08] MEDS ORDERED: hydrALAZINE 20 MG/ML VIAL SLOW IVP PRN (17:37)
[2020-10-08] MEDS ORDERED: Acetaminophen 325 MG TAB PO PRN (17:37)
[2020-10-08] MEDS ORDERED: Dextrose 5% in Water 1,000 ML IV PRN (17:39)
[2020-10-08] MEDS ORDERED: Dextrose 50% Abboject 50 ML SYRINGE SLOW IVP PRN (17:39)
[2020-10-08] MEDS ORDERED: Insulin Regular 300 UNITS/3 ML VIAL SC PRN ×2 (17:39)
[2020-10-08] MEDS ORDERED: Ondansetron ODT 4 MG TAB SL PRN (20:00)
[2020-10-08] MEDS ORDERED: Ondansetron PF 4 MG/2 ML Vial IVP PRN (20:00)
[2020-10-08 20:31] VITALS: BMI 30.2
[2020-10-08] MEDS ORDERED: Atorvastatin Calcium 40 MG TAB PO SCH (21:00)
[2020-10-09 04:52] LABS: #Basophils 0.1 thou/uL (0.0-0.2); #Eosinphils 0.3 thou/uL (0.0-0.7); #Lymphocytes 2.3 thou/uL (1.20-3.40); #Monocytes 0.6 thou/uL (0.11-0.59); #Neutrophils 4.9 thou/uL (1.40-6.50); %Basophils 0.8 % (0.0-1.0); %Eosinophils 3.4 % (0.0-10.0); %Lymphocytes 28.2 % (21.0-51.0); %Monocytes 7.3 % (0.0-10.0); %Neutrophils 60.3 % (42.0-75.0); Hemoglobin 12.6 g/dL (12.0-16.0); Mean Corpuscular HGB CONC 34.4 g/dL (32.0-36.0); Mean Corpuscular Hemoglobin 31.2 pg (27.0-31.0); Mean Corpuscular Volume 90.6 fL (78.0-98.0); Mean Platelet Volume 11.3 fL (7.4-10.4); Platelet Count 141 thou/uL (130-400); RBC Distribution Width 13.4 % (11.5-14.5); Red Blood Cell (RBC) Count 4.03 mill/uL (4.20-5.40); White Blood Cell (WBC) Count 8.2 thou/uL (4.8-10.8)
[2020-10-09 05:17] LABS: Anion Gap 12 mmol/L (10-20); BUN (Urea Nitrogen) 17 mg/dL (9.8-20.1); Calc. Creatinine Clearance 64 mL/min (70-130); Calcium 10.2 mg/dL (7.8-10.44); Carbon Dioxide 25 mmol/L (23-31); Cardiac Risk 3.4 (Less than 4.5); Chloride 106 mmol/L (98-107); Cholesterol 127 mg/dl (< 200 Desired); Glucose 162 mg/dL (83-110); HDL Cholesterol 37 mg/dL (>60 Neg Risk); LDL Cholesterol, Calculated 56 mg/dL; Potassium 3.8 mmol/L (3.5-5.1); Sodium 139 mmol/L (136-145); Triglycerides 168 mg/dL (Less than 150)
[2020-10-09] MEDS ORDERED: Aspirin 81 mg Enteric Coated Tablet PO SCH (09:00)
[2020-10-09] MEDS ORDERED: Enoxaparin Sodium 40 MG/0.4 ML SYRINGE SC SCH (09:00)
[2020-10-09 15:04] VITALS: BP 109/57; TEMP 97.9
[2020-10-09] MEDS ORDERED: metFORMIN 500 MG TAB PO SCH (17:00)
[2020-10-09] MEDS ORDERED: Lantus 1000 UNITS/10 ML VIAL SC SCH (21:00)
[2020-10-10] MEDS ORDERED: Aspirin 81 mg Enteric Coated Tablet PO SCH (09:00)
== END 2020-10-09 16:16 | disposition home or self-care (01) ==
LOC: ERS 14:37 → 2SE 17:27
PROVIDERS: ADMIT Internal Medicine; ATTEND Internal Medicine
DX: G51.0 Bell's palsy (principal); E78.5 Hyperlipidemia, unspecified; E11.9 Type 2 diabetes mellitus without complications; I11.9 Hypertensive heart disease without heart failure; I08.3 Combined rheumatic disorders of mitral, aortic and tricuspid valves; E78.00 Pure hypercholesterolemia, unspecified; Z79.4 Long term (current) use of insulin; Z79.82 Long term (current) use of aspirin; Z88.8 Allergy status to other drugs, medicaments and biological substances
CPT/HCPCS: 70450; 70551; 71045; 80048; 80053; 80061; 82962; 84484; 85025 ×2; 85610; 85730; 93005; 93306; 96372; 99285; G0378 ×3; 36415; 36416; J1650

== ENCOUNTER 2021-02-02 10:26 | Outpatient (CLI) | payer MEDICARE, MEDICAID | END 2021-02-02 10:27 | disposition home or self-care (01) | LOC: BICMRI 10:26 | PROVIDERS: ATTEND Orthopaedic Surgery Hand Surgery | DX: S52.571D Other intraarticular fracture of lower end of right radius, subsequent encounter for closed fracture with routine healing (principal); R60.0 Localized edema; M65.841 Other synovitis and tenosynovitis, right hand; M25.831 Other specified joint disorders, right wrist; S66.319A Strain of extensor muscle, fascia and tendon of unspecified finger at wrist and hand level, initial encounter ==

== ENCOUNTER 2021-03-14 11:32 | Outpatient (CLI) | payer MEDICAID ==
[2021-03-14 13:20] LABS: Bilirubin Neg (Negative); Blood, Urine Negative (Negative); Clarity Cloudy (Clear); Glucose, Urine (Dipstick) 250 mg/dL (Negative); Ketone, Urine 5 mg/dL (Negative); Leukocyte 500 (Negative); Nitrite Negative (Negative); Protein, Urine (Dipstick) 30 mg/dl (Neg-Trace); Specific Gravity, Urine 1.025 (1.002-1.036)
[2021-03-14 13:22] LABS: #Eosinphils 0.4 10x3/uL (0.0-0.5); #Monocytes 0.5 10x3/uL (0.0-1.1); %Basophils 0.4 % (0.0-2.0); %Eosinophils 4.7 % (0.0-6.0); %Lymphocytes 23.2 % (18.0-47.0); %Monocytes 6.9 % (0.0-10.0); %Neutrophils 64.5 % (40.0-75.0); Hemoglobin 10.7 g/dL (12.0-15.5); Mean Corpuscular HGB CONC 32.9 g/dL (32.0-36.0); Mean Corpuscular Hemoglobin 32.1 pg (27.0-33.0); Mean Corpuscular Volume 97.6 fl (81.6-98.3); Platelet Count 182 10x3/uL (150-450); RBC Distribution Width 13.3 % (11.5-14.5); Red Blood Cell (RBC) Count 3.33 10x6/uL (3.90-5.03); White Blood Cell (WBC) Count 7.7 10x3/uL (3.5-10.5)
[2021-03-14 13:42] LABS: Anion Gap 13 mmol/L (10-20); BUN (Urea Nitrogen) 18 mg/dL (9.8-20.1); Calc. Creatinine Clearance 0 mL/min (70-130); Calcium 9.5 mg/dL (7.8-10.44); Carbon Dioxide 23 mmol/L (23-31); Chloride 107 mmol/L (98-107); Glucose 191 mg/dL (83-110); Potassium 4.5 mmol/L (3.5-5.1); Sodium 138 mmol/L (136-145)
[2021-03-14 22:04] LABS: SARS-CoV-2 PCR by NAA Not Detected (NotDetected)
== END 2021-03-14 11:33 | disposition home or self-care (01) ==
LOC: LABBT 11:32
PROVIDERS: ATTEND Orthopaedic Surgery Hand Surgery
DX: Z01.818 Encounter for other preprocedural examination (principal); M65.4 Radial styloid tenosynovitis [de Quervain]; Z20.822 Contact with and (suspected) exposure to COVID-19
CPT/HCPCS: 80048; 81003; 85025; 93005; 93010; U0003; U0005

== ENCOUNTER 2021-03-15 07:57 | Day surgery (SDC) | payer MEDICARE, MEDICAID ==
[2021-03-09 13:49] VITALS: BMI 28.3
[2021-03-15] MEDS ORDERED: Betamet Acet/Betamet Na Ph 30 MG/5 ML VIAL ONE (11:46)
[2021-03-15] MEDS ORDERED: Bacitracin Zinc Ointment 30 gm TUBE ONE ×2 (11:46→12:46)
[2021-03-15] MEDS ORDERED: Neomycin-Polymyxin 1 ML AMP ONE (11:46)
[2021-03-15] MEDS ORDERED: Phenylephrine 10 MG/ML VIAL ONE (11:57)
[2021-03-15] MEDS ORDERED: Fentanyl 100 MCG/2 ML VIAL ONE (11:57)
[2021-03-15] MEDS ORDERED: PROPOFOL 200 MG/20 ML VIAL ONE (12:06)
[2021-03-15] MEDS ORDERED: Lidocaine 1% PF 5 ML VIAL ONE (12:06)
[2021-03-15] MEDS ORDERED: Ondansetron PF 4 MG/2 ML Vial ONE (12:06)
[2021-03-15] MEDS ORDERED: PHENYLEPHRINE-NS 100 MCG/ML 10 ML SYRINGE ONE (12:06)
[2021-03-15] MEDS ORDERED: Ketorolac Tromethamine 30 MG/ML VIAL ONE (13:21)
== END 2021-03-15 14:30 | disposition home or self-care (01) ==
LOC: SDC 07:57
PROVIDERS: ATTEND Orthopaedic Surgery Hand Surgery
PROC: 0LB50ZZ Excision of Right Lower Arm and Wrist Tendon, Open Approach (ICD-10-PCS; principal; 2021-03-15)
DX: M65.4 Radial styloid tenosynovitis [de Quervain] (principal); E11.9 Type 2 diabetes mellitus without complications; I10 Essential (primary) hypertension; E78.5 Hyperlipidemia, unspecified; Z79.82 Long term (current) use of aspirin; Z79.84 Long term (current) use of oral hypoglycemic drugs; Z79.899 Other long term (current) drug therapy; Z88.5 Allergy status to narcotic agent
CPT/HCPCS: 36416; 88305; J0690; J0702; J1885; J2370; J2405; J2704; J3010

== ENCOUNTER 2021-08-17 08:36 | Outpatient (CLI) | payer MEDICARE, MEDICAID | END 2021-08-17 08:37 | disposition home or self-care (01) | LOC: CTENTCT 08:36 | PROVIDERS: ATTEND Specialist | DX: J34.2 Deviated nasal septum (principal) | CPT/HCPCS: 70486 ==

== ENCOUNTER 2021-08-24 09:25 | Outpatient (CLI) | payer MEDICARE, MEDICAID | END 2021-08-24 09:26 | disposition home or self-care (01) | LOC: CT 09:25 | PROVIDERS: ATTEND Specialist | DX: J34.2 Deviated nasal septum (principal); J32.9 Chronic sinusitis, unspecified ==

== ENCOUNTER 2021-11-22 09:52 | Outpatient (CLI) | payer OTHER, MEDICAID ==
[2021-11-22 11:07] LABS: Hemoglobin 11.3 g/dL (12.0-15.5); Mean Corpuscular HGB CONC 33.6 g/dL (32.0-36.0); Mean Corpuscular Hemoglobin 31.5 pg (27.0-33.0); Mean Corpuscular Volume 93.6 fl (81.6-98.3); Platelet Count 197 10x3/uL (150-450); RBC Distribution Width 13.4 % (11.5-14.5); Red Blood Cell (RBC) Count 3.59 10x6/uL (3.90-5.03); White Blood Cell (WBC) Count 8.5 10x3/uL (3.5-10.5)
[2021-11-22 11:23] LABS: Anion Gap 14 mmol/L (10-20); BUN (Urea Nitrogen) 17 mg/dL (9.8-20.1); Calc. Creatinine Clearance 0 mL/min (70-130); Carbon Dioxide 23 mmol/L (23-31); Chloride 105 mmol/L (98-107); Estimated GFR 61; Glucose 236 mg/dL (83-110); Potassium 4.7 mmol/L (3.5-5.1); Sodium 137 mmol/L (136-145)
== END 2021-11-22 09:53 | disposition home or self-care (01) ==
LOC: LABBT 09:52
PROVIDERS: ATTEND Specialist
DX: Z01.818 Encounter for other preprocedural examination (principal); J32.9 Chronic sinusitis, unspecified; J34.3 Hypertrophy of nasal turbinates; J34.2 Deviated nasal septum; R09.81 Nasal congestion; R09.82 Postnasal drip; J34.89 Other specified disorders of nose and nasal sinuses; Z20.822 Contact with and (suspected) exposure to COVID-19
CPT/HCPCS: 80048; 85027; 87811; 93005; 93010

== ENCOUNTER 2021-11-24 10:13 | Day surgery (SDC) | payer OTHER, MEDICAID ==
[2021-11-23 10:55] VITALS: BMI 28.3
[2021-11-24] MEDS ORDERED: Oxymetazoline HCl 0.05% (30 ML BOT) ONE ×3 (11:49→16:09)
[2021-11-24] MEDS ORDERED: Lidocaine 1% MPF 2 ML VIAL ONE ×2 (11:49→11:58)
[2021-11-24] MEDS ORDERED: fentaNYL Citrate/PF 100 MCG/2 ML SYRINGE ONE (13:33)
[2021-11-24] MEDS ORDERED: Bacitracin Zinc Ointment 30 gm TUBE ONE (13:37)
[2021-11-24] MEDS ORDERED: Lidocaine 0.5%/Epinephrine 1:200,000 50 ml Vial ONE (13:38)
[2021-11-24] MEDS ORDERED: Ondansetron PF 4 MG/2 ML Vial ONE (13:42)
[2021-11-24] MEDS ORDERED: Glycopyrrolate 0.2 MG/ML 5 ML SYRINGE ONE (13:42)
[2021-11-24] MEDS ORDERED: PROPOFOL 200 MG/20 ML VIAL ONE (13:42)
[2021-11-24] MEDS ORDERED: Dexamethasone 20 MG/5 ML VIAL ONE (13:42)
[2021-11-24] MEDS ORDERED: Neostigmine Methylsulfate 3 MG/3 ML SYRINGE ONE (13:42)
[2021-11-24] MEDS ORDERED: Lidocaine 1% PF 5 ML VIAL ONE (13:42)
[2021-11-24] MEDS ORDERED: methylPREDNISolone Acetate 40 mg/ml Vial ONE (13:54)
[2021-11-24] MEDS ORDERED: Fentanyl 100 MCG/2 ML VIAL ONE ×2 (15:50→16:33)
[2021-11-24] MEDS ORDERED: AFRIN NASAL MIST 15 ML BOT NS PRN (16:10)
[2021-11-24] MEDS ORDERED: traMADol HCl 50 MG TAB ONE (18:11)
== END 2021-11-24 18:33 | disposition home or self-care (01) ==
LOC: SDC 10:13
PROVIDERS: ATTEND Specialist
PROC: 09SM0ZZ Reposition Nasal Septum, Open Approach (ICD-10-PCS; principal; 2021-11-24)
PROC: 09SL8ZZ Reposition Nasal Turbinate, Via Natural or Artificial Opening Endoscopic (ICD-10-PCS; 2021-11-24)
PROC: 099T8ZZ Drainage of Left Frontal Sinus, Via Natural or Artificial Opening Endoscopic (ICD-10-PCS; 2021-11-24)
PROC: 099Q8ZZ Drainage of Right Maxillary Sinus, Via Natural or Artificial Opening Endoscopic (ICD-10-PCS; 2021-11-24)
PROC: 099R8ZZ Drainage of Left Maxillary Sinus, Via Natural or Artificial Opening Endoscopic (ICD-10-PCS; 2021-11-24)
PROC: 099S8ZZ Drainage of Right Frontal Sinus, Via Natural or Artificial Opening Endoscopic (ICD-10-PCS; 2021-11-24)
PROC: 09TV8ZZ Resection of Left Ethmoid Sinus, Via Natural or Artificial Opening Endoscopic (ICD-10-PCS; 2021-11-24)
PROC: 09TU8ZZ Resection of Right Ethmoid Sinus, Via Natural or Artificial Opening Endoscopic (ICD-10-PCS; 2021-11-24)
DX: J32.9 Chronic sinusitis, unspecified (principal); J34.2 Deviated nasal septum; J34.3 Hypertrophy of nasal turbinates; J33.9 Nasal polyp, unspecified; E11.9 Type 2 diabetes mellitus without complications; I10 Essential (primary) hypertension; E78.5 Hyperlipidemia, unspecified; E55.9 Vitamin D deficiency, unspecified; Z79.82 Long term (current) use of aspirin; Z79.84 Long term (current) use of oral hypoglycemic drugs; Z79.899 Other long term (current) drug therapy; Z88.5 Allergy status to narcotic agent
CPT/HCPCS: J1100; J2001; J2405; J2704; J2920; J3010

== ENCOUNTER 2022-06-18 13:22 | Emergency (ER) | payer OTHER, MEDICAID ==
[~2022-06-18 13:22] MED LIST changes: -Bacitracin Zinc Ointment 30 gm TUBE ONE; -Betamet Acet/Betamet Na Ph 30 MG/5 ML VIAL ONE; -Bupivacaine PF 0.5% 30 ML VIAL ONE; -Dexamethasone 20 MG/5 ML VIAL ONE; -Fentanyl 100 MCG/2 ML VIAL ONE; +Iopamidol-370 76% 500 ML 1 ML ONE; -Lidocaine 1% PF 5 ML VIAL ONE; -Ondansetron PF 4 MG/2 ML Vial ONE; -PHENYLEPHRINE-NS 100 MCG/ML 10 ML SYRINGE ONE; -PROPOFOL 200 MG/20 ML VIAL ONE
[2022-06-18 14:23] LABS: #Eosinphils 0.4 thou/uL (0.0-0.7); #Lymphocytes 2.3 thou/uL (1.20-3.40); #Monocytes 0.5 thou/uL (0.11-0.59); #Neutrophils 4.9 thou/uL (1.40-6.50); %Basophils 0.2 % (0.0-1.0); %Eosinophils 4.4 % (0.0-10.0); %Monocytes 6.4 % (0.0-10.0); %Neutrophils 61.1 % (42.0-75.0); Hemoglobin 10.5 g/dL (12.0-16.0); Mean Corpuscular HGB CONC 32.8 g/dL (32.0-36.0); Mean Corpuscular Hemoglobin 30.4 pg (27.0-31.0); Mean Corpuscular Volume 92.7 fl (78.0-98.0); Mean Platelet Volume 10.5 fL (7.4-10.4); Platelet Count 170 10x3/uL (130-400); RBC Distribution Width 13.3 % (11.5-14.5); Red Blood Cell (RBC) Count 3.46 mill/uL (4.20-5.40); White Blood Cell (WBC) Count 8.1 10x3/uL (4.8-10.8)
[2022-06-18 14:43] LABS: ALT (SGPT) 11 U/L (8-55); AST (SGOT) 8 U/L (5-34); Alkaline Phosphatase 65 U/L (40-110); Anion Gap 14 mmol/L (10-20); BUN (Urea Nitrogen) 24 mg/dL (9.8-20.1); Bilirubin, Total 0.5 mg/dL (0.2-1.2); Calc. Creatinine Clearance 0 mL/min (70-130); Calcium 9.7 mg/dL (7.8-10.44); Carbon Dioxide 21 mmol/L (23-31); Chloride 108 mmol/L (98-107); Estimated GFR 53; Globulin 3.5 g/dL (2.4-3.5); Glucose 191 mg/dL (83-110); Potassium 4.3 mmol/L (3.5-5.1); Protein, Total 7.5 g/dL (5.8-8.1); Sodium 139 mmol/L (136-145)
[2022-06-18 16:05] LABS: Troponin I Less than 0.010 ng/mL (< 0.028)
[2022-06-18] MEDS ORDERED: Pantoprazole 40 MG VIAL ONE (16:10)
[2022-06-18] MEDS ORDERED: Ondansetron PF 4 MG/2 ML Vial ONE (16:10)
== END 2022-06-18 18:47 | disposition home or self-care (01) ==
LOC: ERS 13:22
DX: K57.92 Diverticulitis of intestine, part unspecified, without perforation or abscess without bleeding (principal); E78.00 Pure hypercholesterolemia, unspecified; E11.9 Type 2 diabetes mellitus without complications
CPT/HCPCS: 36415; 74177; 80053; 83690; 84484; 85025; 86140; 93005; 96374; 96375; C9113; J2405; Q9967

== ENCOUNTER 2023-04-18 05:58 | Emergency (ER) | payer OTHER, MEDICAID ==
[2023-04-18 06:54] LABS: Bacteria/HPF None Seen HPF (None Seen); Bilirubin Negative (Negative); Blood, Urine Negative (Negative); CAUTI Indications for Culture Pelvic or flank pain; Clarity Clear (Clear); Glucose, Urine (Dipstick) Normal (Negative); Ketone, Urine Negative (Negative); Leukocyte 25 Leu/uL (Negative); Nitrite Negative (Negative); Protein, Urine (Dipstick) Negative (Neg-Trace); RBC/HPF None Seen HPF (0-3); Specific Gravity, Urine 1.012 (1.002-1.036); Squamous Epithelial 0-3 HPF (0-3); Urobilinogen Normal mg/dL (Less than 2); WBC/HPF 0-3 HPF (0-3); pH, Urine 6.5 (5.0-9.0)
[2023-04-18 07:00] LABS: Urine Culture Reflex No No
[2023-04-18 07:15] LABS: #Eosinphils 0.6 thou/uL (0.0-0.7); #Monocytes 0.5 thou/uL (0.11-0.59); #Neutrophils 3.6 thou/uL (1.40-6.50); %Basophils 0.3 % (0.0-1.0); %Eosinophils 8.8 % (0.0-10.0); %Lymphocytes 27.8 % (21.0-51.0); %Monocytes 7.6 % (0.0-10.0); %Neutrophils 54.9 % (42.0-75.0); Hematocrit 34.7 % (36.0-47.0); Hemoglobin 11.3 g/dL (12.0-16.0); Mean Corpuscular HGB CONC 32.6 g/dL (32.0-36.0); Mean Corpuscular Hemoglobin 31.3 pg (27.0-31.0); Mean Corpuscular Volume 96.1 fl (78.0-98.0); Mean Platelet Volume 11.5 fL (7.4-10.4); Platelet Count 234 10x3/uL (130-400); Red Blood Cell (RBC) Count 3.61 mill/uL (4.20-5.40); White Blood Cell (WBC) Count 6.5 10x3/uL (4.8-10.8)
[2023-04-18 07:42] LABS: ALT (SGPT) 11 U/L (8-55); AST (SGOT) 8 U/L (5-34); Albumin 3.9 g/dL (3.4-4.8); Alkaline Phosphatase 52 U/L (40-110); Anion Gap 13 mmol/L (10-20); BUN (Urea Nitrogen) 26 mg/dL (9.8-20.1); Bilirubin, Total 0.7 mg/dL (0.2-1.2); Calc. Creatinine Clearance 0 mL/min (70-130); Calcium 10.1 mg/dL (7.8-10.44); Carbon Dioxide 25 mmol/L (23-31); Chloride 104 mmol/L (98-107); Estimated GFR 53; Globulin 3.7 g/dL (2.4-3.5); Glucose 135 mg/dL (83-110); Lipase 39 U/L (8-78); Magnesium 1.9 mg/dL (1.6-2.6); Potassium 4.8 mmol/L (3.5-5.1); Protein, Total 7.6 g/dL (5.8-8.1); Sodium 137 mmol/L (136-145)
[2023-04-18 07:57] LABS: Troponin I Less than 0.010 ng/mL (< 0.028)
[2023-04-18] MEDS ORDERED: Ketorolac Tromethamine 30 MG (1 mL) VIAL ONE (08:00)
[2023-04-18] MEDS ORDERED: Iopamidol-370 76% 500 ML MDV (1 ML CHARGE) ONE (09:02)
== END 2023-04-18 08:34 | disposition home or self-care (01) ==
LOC: ERS 05:58
DX: K57.32 Diverticulitis of large intestine without perforation or abscess without bleeding (principal); E11.9 Type 2 diabetes mellitus without complications; Z79.84 Long term (current) use of oral hypoglycemic drugs
CPT/HCPCS: 36415; 74177; 80053; 81001; 83605; 83690; 83735; 84484; 85025; 93005; 96374; J1885; Q9967

== ENCOUNTER 2023-06-02 05:54 | Emergency (ER) | payer OTHER, MEDICAID ==
[2023-06-02 07:15] LABS: #Eosinphils 0.2 thou/uL (0.0-0.7); #Monocytes 1.1 thou/uL (0.11-0.59); #Neutrophils 10.3 thou/uL (1.40-6.50); %Basophils 0.2 % (0.0-1.0); %Eosinophils 1.3 % (0.0-10.0); %Lymphocytes 13.9 % (21.0-51.0); %Monocytes 8.1 % (0.0-10.0); %Neutrophils 76.2 % (42.0-75.0); Hematocrit 35.3 % (36.0-47.0); Hemoglobin 11.7 g/dL (12.0-16.0); Mean Corpuscular HGB CONC 33.1 g/dL (32.0-36.0); Mean Corpuscular Hemoglobin 31.6 pg (27.0-31.0); Mean Corpuscular Volume 95.4 fl (78.0-98.0); Mean Platelet Volume 11.5 fL (7.4-10.4); Platelet Count 192 10x3/uL (130-400); RBC Distribution Width 14.1 % (11.5-14.5); White Blood Cell (WBC) Count 13.5 10x3/uL (4.8-10.8)
[2023-06-02 07:39] LABS: ALT (SGPT) 17 U/L (8-55); AST (SGOT) 10 U/L (5-34); Albumin 4.1 g/dL (3.4-4.8); Alkaline Phosphatase 54 U/L (40-110); Anion Gap 13 mmol/L (10-20); BUN (Urea Nitrogen) 17 mg/dL (9.8-20.1); Bilirubin, Total 1.4 mg/dL (0.2-1.2); Calc. Creatinine Clearance 0 mL/min (70-130); Calcium 10.2 mg/dL (7.8-10.44); Carbon Dioxide 23 mmol/L (23-31); Chloride 104 mmol/L (98-107); Estimated GFR 66; Globulin 3.7 g/dL (2.4-3.5); Glucose 169 mg/dL (83-110); Lipase 27 U/L (8-78); Potassium 4.9 mmol/L (3.5-5.1); Protein, Total 7.8 g/dL (5.8-8.1); Sodium 135 mmol/L (136-145)
[2023-06-02 08:02] LABS: Bacteria/HPF None Seen HPF (None Seen); Bilirubin Negative (Negative); Blood, Urine Negative (Negative); CAUTI Indications for Culture Pelvic or flank pain; Clarity Clear (Clear); Glucose, Urine (Dipstick) Normal (Negative); Ketone, Urine Negative (Negative); Leukocyte Negative Leu/uL (Negative); Nitrite Negative (Negative); Protein, Urine (Dipstick) 20 mg/dL (Neg-Trace); RBC/HPF 0-3 HPF (0-3); Specific Gravity, Urine 1.017 (1.002-1.036); Squamous Epithelial 0-3 HPF (0-3); Urobilinogen Normal mg/dL (Less than 2); pH, Urine 6.5 (5.0-9.0)
[2023-06-02 08:03] LABS: Urine Culture Reflex No No
[2023-06-02] MEDS ORDERED: Ondansetron ODT 4 MG TAB ONE (08:13)
[2023-06-02] MEDS ORDERED: Iopamidol-370 76% 500 ML MDV (1 ML CHARGE) ONE (15:20)
== END 2023-06-02 09:44 | disposition home or self-care (01) ==
LOC: ERS 05:54
DX: K57.92 Diverticulitis of intestine, part unspecified, without perforation or abscess without bleeding (principal); E11.9 Type 2 diabetes mellitus without complications; E78.5 Hyperlipidemia, unspecified; Z79.84 Long term (current) use of oral hypoglycemic drugs
CPT/HCPCS: 36415; 74177; 80053; 81001; 83690; 85025; Q0162; Q9967

== ENCOUNTER 2024-12-04 08:37 | Outpatient (CLI) | payer OTHER, MEDICAID | END 2024-12-04 08:38 | disposition home or self-care (01) | LOC: BICMRI 08:37 | PROVIDERS: ATTEND Orthopaedic Surgery | DX: M51.362 Other intervertebral disc degeneration, lumbar region with discogenic back pain and lower extremity pain (principal); M47.816 Spondylosis without myelopathy or radiculopathy, lumbar region; M48.07 Spinal stenosis, lumbosacral region; M48.061 Spinal stenosis, lumbar region without neurogenic claudication | CPT/HCPCS: 72148 ==